=== PATIENT | female | born 1945 | race Caucasian/White ===

== ENCOUNTER 2019-04-02 14:24 | Outpatient (CLI) | payer MEDICARE ==
[~2019-04-02] VITALS: Ht 162.6 cm; Wt 93.2 kg
[2019-04-02 15:56] LABS: BASOPHILS # (AUTO) 0.04 x10^3/uL (0-0.1); BASOPHILS % (AUTO) 1 % (0-1); EOSINOPHILS # (AUTO) 0.24 x10^3/uL (0-0.4); EOSINOPHILS % (AUTO) 3 % (1-7); LYMPHOCYTES # (AUTO) 2.51 x10^3/uL (1-3.4); LYMPHOCYTES % (AUTO) 29 % (22-44); MD NO; MEAN CORPUSCULAR HEMOGLOBIN 30.2 pg (27.0-34.8); MEAN CORPUSCULAR HGB CONC 32.8 g/dL (32.4-35.8); MEAN PLATELET VOLUME 9.2 fL (7.4-10.4); MONOCYTES # (AUTO) 0.55 x10^3/uL (0.2-0.8); MONOCYTES % (AUTO) 6 % (2-9); NEUTROPHILS # (AUTO) 5.36 x10^3/uL (1.8-6.8); NEUTROPHILS % (AUTO) 62 % (42-75); PLATELET COUNT 196 x10^3/uL (130-400); RED BLOOD COUNT 4.96 x10^6/uL (3.82-5.3)
[2019-04-02 16:08] LABS: ALANINE AMINOTRANSFERASE 33 U/L (12-78); ALBUMIN 3.6 g/dL (3.4-5.0); ANION GAP 6 mmol/L (5-15); CALCIUM 9.4 mg/dL (8.5-10.1); CHLORIDE 109 mmol/L (98-107); CREATININE 0.73 mg/dL (0.55-1.02)
[2019-04-02 16:11] LABS: ALKALINE PHOSPHATASE 114 U/L (45-117); BILIRUBIN,TOTAL 0.5 mg/dL (0.2-1.0); TOTAL PROTEIN 7.3 g/dL (6.4-8.2)
[2019-04-02 16:14] LABS: MICROSCOPIC AUTO
[2019-04-02 16:20] LABS: CULTURE INDICATED? YES
[2019-04-02] MEDS ORDERED: LISI-170 PO (18:29)
[2019-04-02] MEDS ORDERED: INSU100I13 SQ (18:29)
[2019-04-02] MEDS ORDERED: INSU100V8 SQ (18:29)
[2019-04-02] MEDS ORDERED: HYDR-3237 PO (18:29)
[2019-04-02] MEDS ORDERED: ASPI-496 PO (18:29)
[2019-04-02] MEDS ORDERED: HYDR-826 PO (18:29)
[2019-04-02] MEDS ORDERED: lipitor PO (18:29)
[2019-04-06] MEDS ORDERED: ATOR40TA78 PO (08:50)
[2019-04-06] MEDS ORDERED: SERT100T32 PO (08:50)
[2019-04-06] MEDS ORDERED: CARV3.1212 PO (08:50)
[2019-04-06] MEDS ORDERED: OMEP-110 PO (08:50)
[2019-04-06] MEDS ORDERED: NITR100C PO (08:51)
== END 2019-04-02 23:59 | disposition home or self-care (01) ==
LOC: STAR 14:24
PROVIDERS: ATTEND Neurological Surgery
DX: Z01.818 Encounter for other preprocedural examination (principal); M48.061 Spinal stenosis, lumbar region without neurogenic claudication
CPT/HCPCS: 36415; 80053; 81001; 85025; 87077; 87086; 87147; 87186; 93005

== ENCOUNTER → 2020-03-28 | Outpatient (CLI) | payer MEDICARE ==
[~2020-03-28] MED LIST: ASPI-496 PO; ATOR40TA78 PO; CARV3.1212 PO; CEPH-368 PO; HYDR-3237 PO; HYDR-3246 PO; HYDR-826 PO; INSU100I13 SQ; INSU100V8 SQ; LISI-170 PO; METH750T87 PO; NITR100C PO; OMEP-110 PO; SERT100T32 PO; lipitor PO
== END | disposition home or self-care (01) ==
LOC: RAD 14:18
PROVIDERS: ATTEND Physician Assistant
DX: M51.36 Other intervertebral disc degeneration, lumbar region (principal); M41.85 Other forms of scoliosis, thoracolumbar region; M48.02 Spinal stenosis, cervical region
CPT/HCPCS: 72082

== ENCOUNTER 2020-06-23 10:26 | Outpatient (CLI) | payer MEDICARE ==
[2020-07-01] MEDS ORDERED: HYDR-3246 PO (13:09)
[2020-07-01] MEDS ORDERED: LISI-167 PO (13:09)
[2020-07-01] MEDS ORDERED: SULF1TAB24 PO (13:09)
[2020-07-01] MEDS ORDERED: NPH,100V5 SC (13:09)
[2020-07-01] MEDS ORDERED: ERGO500017 PO (13:09)
[2020-07-01] MEDS ORDERED: CA C1TAB39 PO (13:09)
== END 2020-06-23 23:59 | disposition home or self-care (01) ==
LOC: STAR 10:26
PROVIDERS: ATTEND Anesthesiology
DX: Z02.9 Encounter for administrative examinations, unspecified (principal)

== ENCOUNTER → 2020-07-01 | Outpatient (CLI) | payer MEDICARE ==
[~2020-07-01] MED LIST changes: +CA C1TAB39 PO; +ERGO500017 PO; +LISI-167 PO; +NPH,100V5 SC; +SULF1TAB24 PO
[2020-07-01 14:05] LABS: BASOPHILS % (AUTO) 1 % (0-1); EOSINOPHILS % (AUTO) 2 % (1-7); LYMPHOCYTES % (AUTO) 32 % (22-44); MEAN CORPUSCULAR HEMOGLOBIN 28.8 pg (27.0-34.8); MEAN CORPUSCULAR HGB CONC 33.2 g/dL (32.4-35.8); MEAN PLATELET VOLUME 9.6 fL (7.4-10.4); MONOCYTES % (AUTO) 8 % (2-9); NEUTROPHILS % (AUTO) 57 % (42-75); PLATELET COUNT 164 x10^3/uL (130-400); RED BLOOD COUNT 4.86 x10^6/uL (3.82-5.3); RED CELL DISTRIBUTION WIDTH 13.8 % (9.6-15.2)
[2020-07-01 14:06] LABS: MD NO; MICROSCOPIC AUTO
[2020-07-01 14:17] LABS: ALBUMIN 3.6 g/dL (3.4-5.0); ANION GAP 6 mmol/L (5-15); CALCIUM 8.9 mg/dL (8.5-10.1); CHLORIDE 107 mmol/L (98-107)
[2020-07-01 14:20] LABS: ALANINE AMINOTRANSFERASE 23 U/L (12-78); ALKALINE PHOSPHATASE 162 U/L (45-117); BILIRUBIN,TOTAL 0.4 mg/dL (0.2-1.0); CREATININE 0.87 mg/dL (0.55-1.02); TOTAL PROTEIN 7.4 g/dL (6.4-8.2)
[2020-07-01 15:00] LABS: INTERNATIONAL NORMALIZED RATIO 0.96 (0.93-1.1); PROTHROMBIN TIME 10.2 Seconds (9.6-11.5)
== END | disposition home or self-care (01) ==
LOC: STAR 12:10
PROVIDERS: ATTEND Neurological Surgery
DX: Z01.810 Encounter for preprocedural cardiovascular examination (principal); Z01.812 Encounter for preprocedural laboratory examination; Z01.811 Encounter for preprocedural respiratory examination; M48.02 Spinal stenosis, cervical region; M54.2 Cervicalgia; R79.1 Abnormal coagulation profile; R94.31 Abnormal electrocardiogram [ECG] [EKG]; R82.90 Unspecified abnormal findings in urine; Z20.822 Contact with and (suspected) exposure to COVID-19
CPT/HCPCS: 71046; 80053; 81001; 85025; 85610; 85730; 87086; 87635; 93005

== ENCOUNTER → 2020-09-04 | Outpatient (CLI) | payer MEDICARE ==
[~2020-09-04] MED LIST changes: +ANTI DIARRHEA PO; -HYDR-3246 PO; +HYDR-3248 PO; +LISI5TAB7 PO; +[UNRECOGNIZED DRUG - CODE] PO; +hemp oil SL
[2020-09-04 15:04] LABS: BASOPHILS % (AUTO) 1 % (0-1); EOSINOPHILS % (AUTO) 3 % (1-7); LYMPHOCYTES % (AUTO) 38 % (22-44); MEAN CORPUSCULAR HEMOGLOBIN 28.9 pg (27.0-34.8); MEAN CORPUSCULAR HGB CONC 33.6 g/dL (32.4-35.8); MEAN PLATELET VOLUME 9.3 fL (7.4-10.4); MONOCYTES % (AUTO) 9 % (2-9); NEUTROPHILS % (AUTO) 50 % (42-75); PLATELET COUNT 151 x10^3/uL (130-400); RED BLOOD COUNT 4.97 x10^6/uL (3.82-5.3); RED CELL DISTRIBUTION WIDTH 14.2 % (9.6-15.2)
[2020-09-04 15:05] LABS: MD NO
[2020-09-04 15:10] LABS: INTERNATIONAL NORMALIZED RATIO 0.96 (0.93-1.1); PROTHROMBIN TIME 10.3 Seconds (9.6-11.5)
[2020-09-04 15:14] LABS: ALBUMIN 3.5 g/dL (3.4-5.0); ANION GAP 5 mmol/L (5-15); CALCIUM 8.6 mg/dL (8.5-10.1); CHLORIDE 107 mmol/L (98-107)
[2020-09-04 15:18] LABS: ALANINE AMINOTRANSFERASE 25 U/L (12-78); ALKALINE PHOSPHATASE 158 U/L (45-117); BILIRUBIN,TOTAL 0.4 mg/dL (0.2-1.0); CREATININE 0.77 mg/dL (0.55-1.02); TOTAL PROTEIN 7.1 g/dL (6.4-8.2)
[2020-09-04 15:24] LABS: MICROSCOPIC INDICATED
== END | disposition home or self-care (01) ==
LOC: STAR 13:14
PROVIDERS: ATTEND Neurological Surgery
DX: Z01.810 Encounter for preprocedural cardiovascular examination (principal); Z01.811 Encounter for preprocedural respiratory examination; Z01.812 Encounter for preprocedural laboratory examination; R79.1 Abnormal coagulation profile; R82.90 Unspecified abnormal findings in urine; R94.31 Abnormal electrocardiogram [ECG] [EKG]; M48.02 Spinal stenosis, cervical region; M54.2 Cervicalgia; Z20.822 Contact with and (suspected) exposure to COVID-19
CPT/HCPCS: 36415; 71046; 80053; 81001; 85025; 85610; 85730; 87086; 93005; U0003; 87077